=== PATIENT | female | born 1970 | race Caucasian/White ===

== ENCOUNTER 2017-01-10 15:39 | Emergency (ER) | payer SELFPAY ==
[~2017-01-10] VITALS: Ht 154.9 cm; Wt 53.5 kg
[2017-01-10 16:01] VITALS: BP 142/76
== END 2017-01-10 18:06 | disposition home or self-care (01) ==
LOC: ED 15:39
DX: S01.81XA Laceration without foreign body of other part of head, initial encounter (principal); W54.0XXA Bitten by dog, initial encounter; Y93.89 Activity, other specified; Y99.8 Other external cause status; Y92.89 Other specified places as the place of occurrence of the external cause
CPT/HCPCS: 90715; J2001

== ENCOUNTER 2017-01-15 07:38 | Emergency (ER) | payer SELFPAY ==
[~2017-01-15] VITALS: Ht 162.6 cm; Wt 53.5 kg
[2017-01-15 07:49] VITALS: BP 114/70
== END 2017-01-15 08:23 | disposition home or self-care (01) ==
LOC: ED 07:38
DX: S01.411D Laceration without foreign body of right cheek and temporomandibular area, subsequent encounter (principal); X58.XXXD Exposure to other specified factors, subsequent encounter